=== PATIENT | female | born 1975 | race Caucasian/White ===

== ENCOUNTER 2019-06-03 08:34 | Outpatient (CLI) | payer OTHER, SELFPAY ==
[2019-06-03 09:14] LABS: MALB Creatinine Ratio 3.1 mg/g (0-30); Microalbumin Urine Random 7.7 mg/L
[2019-06-03 09:15] LABS: Hemoglobin A1C 8.7 % (<5.7)
[2019-06-03 09:42] LABS: Anion Gap 12.6 mmol/L (7-16); Blood Urea Nitrogen 10 mg/dL (7-18); Calcium 8.7 mg/dL (8.5-10.1); Carbon Dioxide 26 mmol/L (21-32); Chloride 103 mmol/L (98-108); Estimated Glomerular Filt Rate > 60; Glucose 145 mg/dL (70-99); Osmolality Calculated 286 mOsm/kg (285-295); Potassium 4.6 mmol/L (3.5-5.1); Sodium 137 mmol/L (136-145)
== END 2019-06-03 08:35 | disposition home or self-care (01) ==
LOC: CHSLAB 08:39
PROVIDERS: PCP Internal Medicine; Visit Provider Internal Medicine
DX: E10.65 Type 1 diabetes mellitus with hyperglycemia (principal)
CPT/HCPCS: 36415; 80048; 82043; 83036

== ENCOUNTER 2019-09-26 07:13 | Outpatient (CLI) | payer OTHER, SELFPAY ==
[2019-09-26 07:48] LABS: Add Urine Microscopic? NO; Appearance Urine Clear (Clear); Bilirubin Urine Negative (Negative); Blood Urine Negative (Negative); Color Urine Yellow (Yellow); Glucose Urine UA Negative (Negative); Ketones Urine Negative (Negative); Leukocyte Esterase Ur Negative (Negative); Nitrate Urine Negative (Negative); Protein Urine Negative (Negative); Specific Grav Ur 1.025 (1.010-1.020)
[2019-09-26 08:11] LABS: MALB Creatinine Ratio 4.2 mg/g (0-30); Microalbumin Urine Random 10.3 mg/L
[2019-09-26 08:16] LABS: Hemoglobin A1C 8.5 % (<5.7)
[2019-09-26 08:23] LABS: Alanine Aminotransferase 22 U/L (14-59); Albumin Level 3.4 g/dL (3.4-5.0); Alkaline Phosphatase 75 U/L (46-116); Anion Gap 12.3 mmol/L (7-16); Aspartate Amino Transferase 13 U/L (15-37); Bilirubin,Total 0.5 mg/dL (0.00-1.00); Blood Urea Nitrogen 10 mg/dL (7-18); Calcium 8.5 mg/dL (8.5-10.1); Carbon Dioxide 26 mmol/L (21-32); Chloride 104 mmol/L (98-108); Cholesterol 112 mg/dL (0-200); Creatine Kinase 80 U/L (26-192); Estimated Glomerular Filt Rate > 60; Glucose 123 mg/dL (70-99); HDL Direct 44 mg/dL (40-60); LDL Cholesterol Calculated 58 mg/dL (<130); Osmolality Calculated 286 mOsm/kg (285-295); Potassium 4.3 mmol/L (3.5-5.1); Sodium 138 mmol/L (136-145); Total Protein 6.3 g/dL (6.4-8.2); Triglycerides 50 mg/dL (0-150)
== END 2019-09-26 07:14 | disposition home or self-care (01) ==
PROVIDERS: PCP Internal Medicine; Visit Provider Internal Medicine
DX: E78.2 Mixed hyperlipidemia (principal); I10 Essential (primary) hypertension; E10.65 Type 1 diabetes mellitus with hyperglycemia
CPT/HCPCS: 36415; 80053; 80061; 81003; 82043; 82550; 83036

== ENCOUNTER 2020-01-30 07:29 | Outpatient (CLI) | payer OTHER, SELFPAY ==
[2020-01-30 07:58] LABS: Creatinine Urine 163.79 mg/dL (40-278); MALB Creatinine Ratio 21.5 mg/g (0-30); Microalbumin Urine Random 35.3 mg/L
[2020-01-30 08:00] LABS: Hemoglobin A1C 8.6 % (<5.7)
[2020-01-30 08:36] LABS: Alanine Aminotransferase 22 U/L (14-59); Albumin Level 3.6 g/dL (3.4-5.0); Alkaline Phosphatase 83 U/L (46-116); Anion Gap 9 mmol/L (8-16); Aspartate Amino Transferase < 10 U/L (15-37); Bilirubin,Total 0.4 mg/dL (0.00-1.00); Blood Urea Nitrogen 12 mg/dL (7-18); Calcium 8.8 mg/dL (8.5-10.1); Carbon Dioxide 24 mmol/L (21-32); Chloride 101 mmol/L (98-108); Estimated Glomerular Filt Rate > 60; Glucose 252 mg/dL (70-99); Osmolality Calculated 286 mOsm/kg (285-295); Potassium 4.3 mmol/L (3.5-5.1); Sodium 134 mmol/L (136-145); Total Protein 6.7 g/dL (6.4-8.2)
== END 2020-01-30 07:30 | disposition home or self-care (01) ==
LOC: CHSLAB 07:30
PROVIDERS: PCP Internal Medicine; Visit Provider Internal Medicine
DX: E10.65 Type 1 diabetes mellitus with hyperglycemia (principal)
CPT/HCPCS: 36415; 80053; 82043; 83036

== ENCOUNTER 2020-05-29 07:33 | Outpatient (CLI) | payer OTHER, SELFPAY ==
[2020-05-29 08:01] LABS: MALB Creatinine Ratio 12.5 mg/g (0-30); Microalbumin Urine Random 32.1 mg/L
[2020-05-29 08:02] LABS: Hemoglobin A1C 8.4 % (<5.7)
[2020-05-29 09:24] LABS: Alanine Aminotransferase 22 U/L (14-59); Albumin Level 3.6 g/dL (3.4-5.0); Alkaline Phosphatase 82 U/L (46-116); Anion Gap 8 mmol/L (8-16); Aspartate Amino Transferase < 10 U/L (15-37); Bilirubin,Total 0.7 mg/dL (0.00-1.00); Blood Urea Nitrogen 12 mg/dL (7-18); Carbon Dioxide 28 mmol/L (21-32); Chloride 100 mmol/L (98-108); Cholesterol 95 mg/dL (0-200); Creatine Kinase 74 U/L (26-192); Estimated Glomerular Filt Rate > 60; Glucose 145 mg/dL (70-99); HDL Direct 43 mg/dL (40-60); LDL Cholesterol Calculated 41 mg/dL (<130); Osmolality Calculated 284 mOsm/kg (285-295); Potassium 4.4 mmol/L (3.5-5.1); Sodium 136 mmol/L (136-145); Total Protein 6.6 g/dL (6.4-8.2); Triglycerides 57 mg/dL (0-150)
[2020-05-29 09:52] LABS: Add Urine Microscopic? NO; Appearance Urine Clear (Clear); Bilirubin Urine Negative (Negative); Blood Urine Negative (Negative); Color Urine Yellow (Yellow); Glucose Urine UA Negative (Negative); Ketones Urine Negative (Negative); Leukocyte Esterase Ur Negative (Negative); Nitrate Urine Negative (Negative); Protein Urine Negative (Negative); Urobilinogen Urine 0.2 mg/dL (0.2-1.0); pH Urine 6.5 (5.0-8.0)
== END 2020-05-29 07:34 | disposition home or self-care (01) ==
LOC: CHSLAB 07:36
PROVIDERS: PCP Internal Medicine; Visit Provider Internal Medicine
DX: E10.65 Type 1 diabetes mellitus with hyperglycemia (principal); I10 Essential (primary) hypertension; E78.2 Mixed hyperlipidemia
CPT/HCPCS: 36415; 80053; 80061; 81003; 82043; 82550; 83036

== ENCOUNTER 2020-09-07 10:25 | Outpatient (CLI) | payer OTHER, SELFPAY ==
[2020-09-07 10:50] LABS: Hematocrit 46.6 % (37.0-47.0); Mean Corpuscular HGB Conc 34.3 g/dl (32-36); Mean Corpuscular Hemoglobin 29.7 pg (26-34); Mean Corpuscular Volume 86.6 fl (80-100); Mean Platelet Volume 10.4 fl (7.4-10.4); Platelet Count Result 341 k/mm3 (150-375); Red Blood Count 5.38 M/mm3 (4.2-5.4); Red Cell Distribution Width 11.6 % (11.5-14.5); White Blood Count 10.8 K/mm3 (4.5-10.0)
[2020-09-07 10:51] LABS: Hemoglobin A1C 8.2 % (<5.7)
[2020-09-07 10:52] LABS: Alanine Aminotransferase 18 U/L (4-35); Albumin Level 4.3 g/dL (3.5-5.1); Alkaline Phosphatase 82 U/L (38-126); Anion Gap 7 mmol/L (8-16); Aspartate Amino Transferase 21 U/L (14-36); Bilirubin,Total 0.4 mg/dL (0.2-1.3); Blood Urea Nitrogen 9 mg/dL (7-17); Calcium 9.4 mg/dL (8.4-10.2); Carbon Dioxide 28 mmol/L (22-30); Chloride 103 mmol/L (98-107); Cholesterol 128 mg/dL (0-200); Estimated Glomerular Filt Rate > 60; Glucose 125 mg/dL (65-105); HDL Direct 48 mg/dL; Potassium 4.1 mmol/L (3.4-5.0); Sodium 138 mmol/L (137-145); Triglycerides 89 mg/dL (<150)
[2020-09-07 11:03] LABS: LDL Cholesterol Direct 52 mg/dL
== END 2020-09-07 10:26 | disposition home or self-care (01) ==
PROVIDERS: PCP Family Medicine; Visit Provider Family Medicine
DX: R20.0 Anesthesia of skin (principal); K21.9 Gastro-esophageal reflux disease without esophagitis; E78.2 Mixed hyperlipidemia; E10.9 Type 1 diabetes mellitus without complications; Z13.220 Encounter for screening for lipoid disorders
CPT/HCPCS: 36415; 80048; 80061; 80076; 82607; 83036; 85027

== ENCOUNTER 2020-10-20 10:12 | Outpatient (CLI) | payer OTHER, SELFPAY ==
--- NOTE | 2020-10-20 11:30 | NEURO_ITS ---
Impression: # Insulin dependent diabetic complains of increasing numbness of hands with nocturnal paresthesia. # Bilateral Carpal Tunnel Syndrome. # No ulnar neuropathy. # Normal needle/EMG exam. Nerve Conduction Studies Anti Sensory Summary Table Stim Site NR Peak (ms) P-T Amp (?V) Site1 Site2 Delta-P (ms) Dist (cm) Chase (m/s) Left Median Anti Sensory (2-3nd Digit) Wrist 3.7 47.3 Wrist 2-3nd Digit 3.7 14.0 38 Wrist 3.9 23.2 Wrist 2-3nd Digit 3.7 14.0 38 Right Median Anti Sensory (2-3nd Digit) Wrist 4.5 37.9 Wrist 2-3nd Digit 4.5 14.0 31 Wrist 4.1 34.3 Wrist 2-3nd Digit 4.5 14.0 31 Left Radial Anti Sensory (Base 1st Digit) Wrist 1.9 23.7 Wrist Base 1st Digit 1.9 0.0 Right Radial Anti Sensory (Base 1st Digit) Wrist 2.0 16.9 Wrist Base 1st Digit 2.0 0.0 Left Ulnar Anti Sensory (5th Digit) Wrist 2.4 51.4 Wrist 5th Digit 2.4 14.0 58 Right Ulnar Anti Sensory (5th Digit) Wrist 2.4 30.0 Wrist 5th Digit 2.4 14.0 58 Motor Summary Table Stim Site NR Onset (ms) O-P Amp (mV) Site1 Site2 Delta-0 (ms) Dist (cm) Chase (m/s) Left Median Motor (Abd Poll Brev) Wrist 5.0 3.2 Elbow Wrist 4.9 26.0 53 Elbow 9.9 1.3 Right Median Motor (Abd Poll Brev) Wrist 5.4 1.7 Elbow Wrist 5.1 26.0 51 Elbow 10.5 1.4 Left Ulnar Motor (Abd Dig Minimi) Wrist 2.6 9.1 A Elbow Wrist 4.8 27.0 56 A Elbow 7.4 7.2 Right Ulnar Motor (Abd Dig Minimi) Wrist 2.4 6.4 A Elbow Wrist 4.6 26.0 57 A Elbow 7.0 5.4 F Wave Studies NR F-Lat (ms) L-R F-Lat (ms) Left Median (Mrkrs) (Abd Poll Brev) 29.44 0.03 Right Median (Mrkrs) (Abd Poll Brev) 29.47 0.03 Left Ulnar (Mrkrs) (Abd Dig Min) 27.95 0.41 Right Ulnar (Mrkrs) (Abd Dig Min) 27.54 0.41 EMG Side Muscle Nerve Root Ins Act Fibs Amp Dur Recrt Comment Right 1stDorInt Ulnar C8-T1 Nml Nml Nml Nml Nml Right Ext Indicis Radial (Post Int) C7-8 Nml Nml Nml Nml Nml Right Ext Digitorum Radial (Post Int) C7-8 Nml Nml Nml Nml Nml Right BrachioRad Radial C5-6 Nml Nml Nml Nml Nml Right PronatorTeres Median C6-7 Nml Nml Nml Nml Nml Right Abd Poll Brev Median C8-T1 Nml Nml Nml Nml Nml Left 1stDorInt Ulnar C8-T1 Nml Nml Nml Nml Nml Left Ext Indicis Radial (Post Int) C7-8 Nml Nml Nml Nml Nml Left Ext Digitorum Radial (Post Int) C7-8 Nml Nml Nml Nml Nml Left BrachioRad Radial C5-6 Nml Nml Nml Nml Nml Left PronatorTeres Median C6-7 Nml Nml Nml Nml Nml Left Abd Poll Brev Median C8-T1 Nml Nml Nml Nml Nml MTDD
== END 2020-10-20 10:13 | disposition home or self-care (01) ==
PROVIDERS: PCP Family Medicine; Visit Provider Family Medicine
DX: R20.2 Paresthesia of skin (principal); G56.03 Carpal tunnel syndrome, bilateral upper limbs
CPT/HCPCS: 95886; 95911

== ENCOUNTER 2021-11-08 09:06 | Outpatient (CLI) | payer OTHER, SELFPAY ==
--- NOTE | ~2021-11-08 | XR_ITS ---
EXAMINATION: XR shoulder LT min 2V DATE: 11/08/2021 11:07 INDICATION: Left shoulder pain. TECHNIQUE: 4 views of left shoulder were obtained. COMPARISON: None. FINDINGS: Bone alignment is normal. No fracture. Joint spaces are normal. IMPRESSION: 1. Normal left shoulder. Reviewed, dictated and finalized at location A. IMPRESSION: 1. Normal left shoulder.
--- NOTE | ~2021-11-08 | XR_ITS ---
EXAMINATION: XR shoulder RT min 2V DATE: 11/08/2021 11:07 INDICATION: Right shoulder pain. TECHNIQUE: 4 views of right shoulder were obtained. COMPARISON: None. FINDINGS: Bone alignment is normal. No fracture. Joint spaces are normal. IMPRESSION: 1. Normal right shoulder. Reviewed, dictated and finalized at location A. IMPRESSION: 1. Normal right shoulder.
--- NOTE | ~2021-11-08 | XR_ITS ---
EXAMINATION: XR_CERV2-3V_CR DATE: 11/08/2021 11:07 INDICATION: Neck pain. TECHNIQUE: 3 views of cervical spine on 4 radiographs were obtained. COMPARISON: None. FINDINGS: There is kyphosis of cervical spine. Vertebral body heights are normal. There is moderately decreased disc height at C5-C6 and severely decreased disc height at C6-C7 with endplate remodeling. There is severe uncovertebral joint osteoarthritis on the right at C5-C6 and bilaterally at C6-C7. T here is multilevel mild facet joint osteoarthritis. There is mild central canal stenosis at C5-C6 and C6-C7. No prevertebral soft tissue swelling. IMPRESSION: 1. Severe cervical spondylosis. Reviewed, dictated and finalized at location A.
--- NOTE | 2021-11-08 09:31 | ECHO_ITS ---
Patient Info Name: Dina Zhong Age: 46 years : 1975 Gender: Female Ht: 61 in Wt: 210 lbs BSA: 2.08 m2 HR: 71 bpm BP: 145 / 92 mmHg Technical Quality: Good Exam Date: 11/08/2021 10:00 AM Exam Location: [facility] Patient Status: Outpatient Admit Date: 11/08/2021 Staff Ordering Physician: Dylon Vogel NP Notereader: Kendall Stewart RDCS, RT Attending Provider: Dylon Vogel NP Referring Physician: Tessa Valladares APRN; Exam Type: CA echo doppler color flow Study Info Indications Z82.79 - Family history of other congenital malformations, deformations and chromosomal abnormalities Complete two-dimensional, color flow and Doppler transthoracic echocardiogram is performed. Strain analysis performed. Summary 1. Complete two-dimensional, color flow and Doppler transthoracic echocardiogram is performed. 2. Left ventricular chamber dimension is normal. 3. Left ventricular systolic function is normal, estimated at 60-65%. 4. The left ventricular diastolic function is grade I diastolic dysfunction. 5. E/e' 13 is mildly elevated. 6. Global longitudinal strain is mildly abnormal at -16.2%. Left Ventricle E/e' 13 is mildly elevated. Global longitudinal strain is mildly abnormal at -16.2%. Left ventricular chamber dimension is normal. Left ventricular systolic function is normal, estimated at 60-65%. The left ventricular diastolic function is grade I diastolic dysfunction. Right Ventricle Right ventricular systolic function is normal and with normal TAPSE 2.4 cm. Right ventricular chamber dimension is normal. Left Atria Left atrial chamber dimension is normal. Right Atria Right atrial chamber dimension is normal. Aortic Valve The aortic valve is trileaflet. There is no aortic valve stenosis. There is no aortic valve regurgitation. Pulmonic Valve There is no pulmonic regurgitation. Mitral Valve There is no mitral valve stenosis. There is no mitral valve regurgitation. Tricuspid Valve There is no tricuspid valve regurgitation. Pericardium/Pleural There is no pericardial effusion. Inferior Vena Cava Normal inferior vena cava with >50% collapse upon inspiration consistent with normal right atrial pressure, 5 mmHg. Aorta The aortic root size at the sinus of Valsalva is normal. Left Ventricular Outflow Tract Name Value Normal LVOT 2D LVOT Diameter 2.0 cm LVOT Doppler LVOT Peak Gradient 4 mmHg LVOT Mean Gradient 2 mmHg LVOT VTI 22 cm LVOT VTI/AV VTI Ratio 0.8 LVOT Stroke Volume 69 ml LVOT CO 6.0 l/min LVOT CI 2.9 l/min/m2 Mitral Valve Name Value Normal MV Doppler MV Decel [place]
[2021-11-08 11:11] LABS: Alanine Aminotransferase 20 U/L (6-35); Albumin Level 4.3 g/dL (3.5-5.1); Alkaline Phosphatase 84 U/L (38-126); Anion Gap 9 mmol/L (8-16); Aspartate Amino Transferase 18 U/L (14-36); Bilirubin,Total 0.4 mg/dL (0.2-1.3); Blood Urea Nitrogen 12 mg/dL (7-17); Calcium 9.1 mg/dL (8.4-10.2); Carbon Dioxide 28 mmol/L (22-30); Chloride 98 mmol/L (98-107); Cholesterol 126 mg/dL (0-200); Estimated Glomerular Filt Rate > 60; Glucose 192 mg/dL (65-110); HDL Direct 45 mg/dL; Potassium 4.1 mmol/L (3.4-5.0); Sodium 135 mmol/L (137-145); Triglycerides 136 mg/dL (<150)
[2021-11-08 11:22] LABS: LDL Cholesterol Direct 53 mg/dL
[2021-11-08 11:29] LABS: Creatinine Urine 103.7 mg/dL
[2021-11-08 11:34] LABS: MALB Creatinine Ratio 10.2 mg/g (0-30); Microalbumin Urine Random 10.6 mg/L (0-16.7)
[2021-11-08 11:45] LABS: Free T4 Free Thyroxine 1.02 ng/mL (0.78-2.19); Vitamin D 25 Hydroxy 29.3 ng/mL
== END 2021-11-08 09:07 | disposition home or self-care (01) ==
PROVIDERS: PCP Family Medicine; Referring Provider Nurse Practitioner Family; Visit Provider Nurse Practitioner Family
DX: E10.9 Type 1 diabetes mellitus without complications (principal); E55.9 Vitamin D deficiency, unspecified; E78.5 Hyperlipidemia, unspecified; I10 Essential (primary) hypertension; M25.512 Pain in left shoulder; M25.511 Pain in right shoulder; Z82.79 Family history of other congenital malformations, deformations and chromosomal abnormalities; M47.892 Other spondylosis, cervical region
CPT/HCPCS: 36415; 72040; 73030; 80053; 80061; 82043; 82306; 82607; 84439; 84443; 93306

== ENCOUNTER 2022-01-10 09:57 | Outpatient (CLI) | payer OTHER, SELFPAY ==
--- NOTE | ~2022-01-10 | MM_ITS ---
EXAMINATION: MM screening abrahan BI w patria HISTORY: Screening mammogram TECHNIQUE: Craniocaudal and mediolateral oblique 3-D tomosynthesis images were obtained and synthetic 2-D images were generated. CAD analysis was submitted and interpreted. COMPARISON: 10/24/2018, 10/15/2018, 11/23/2015 BREAST PARENCHYMAL COMPOSITION: There are scattered areas of fibroglandular density. FINDINGS: Left breast calcifications have a morphology and distribution similar to the 20 19th compar alton examinations. No suspicious mass, calcification, or architectural distortion are identified in e ither breast to suggest malignancy. There has been no suspicious interval change. IMPRESSION: 1. No mammographic evidence of malignancy. 2. Recommend routine screening mammography in one year. BI-RADS Category 2: Benign finding(s). Reviewed, dictated and finalized at location A.
== END 2022-01-10 09:58 | disposition home or self-care (01) ==
PROVIDERS: PCP Family Medicine; Visit Provider Nurse Practitioner Family
DX: Z12.31 Encounter for screening mammogram for malignant neoplasm of breast (principal)
CPT/HCPCS: 77063; 77067

== ENCOUNTER 2023-05-28 09:38 | Outpatient (CLI) | payer OTHER, SELFPAY ==
--- NOTE | ~2023-05-28 | MM_ITS ---
EXAMINATION: MM screening abrahan BI w patria HISTORY: Screening mammogram TECHNIQUE: Craniocaudal and mediolateral oblique 3-D tomosynthesis images were obtained and synthetic 2-D images were generated. CAD analysis was submitted and interpreted. COMPARISON: 01/10/2022 bilateral screening mammogram 10/24/2018 diagnostic left mammogram 10/15/2018 bilateral screening mammogram BREAST PARENCHYMAL COMPOSITION: There are scattered areas of fibroglandular density. FINDINGS: Chronic asymmetric left breast microcalcifications. There is no evidence of suspicious mass , calcification, or architectural distortion to suggest malignancy in either breast. There has been n o suspicious interval change. IMPRESSION: 1. No mammographic evidence of malignancy. 2. Recommend routine screening mammography in one year. BI-RADS Category 2: Benign finding(s). Reviewed, dictated and finalized at location A.
== END 2023-05-28 09:39 | disposition home or self-care (01) ==
LOC: ANHIMG 09:41
PROVIDERS: PCP Family Medicine; Visit Provider Family Medicine
DX: Z12.31 Encounter for screening mammogram for malignant neoplasm of breast (principal)
CPT/HCPCS: 77063; 77067

== ENCOUNTER 2023-07-18 11:02 | Outpatient (CLI) | payer OTHER, SELFPAY ==
[2023-07-18 16:44] LABS: Alanine Aminotransferase 23 U/L (6-35); Albumin Level 4.5 g/dL (3.5-5.1); Alkaline Phosphatase 89 U/L (38-126); Anion Gap 9 mmol/L (4-12); Aspartate Amino Transferase 83 U/L (14-36); Bilirubin,Total 0.5 mg/dL (0.2-1.3); Blood Urea Nitrogen 12 mg/dL (7-17); Calcium 9.6 mg/dL (8.4-10.2); Carbon Dioxide 20 mmol/L (22-30); Chloride 105 mmol/L (98-107); Cholesterol 128 mg/dL (0-200); Estimated Glomerular Filt Rate > 60; Glucose 139 mg/dL (65-110); HDL Direct 45 mg/dL; Potassium 4.5 mmol/L (3.4-5.0); Sodium 134 mmol/L (137-145); Triglycerides 99 mg/dL (<150)
[2023-07-18 16:55] LABS: LDL Cholesterol Direct 64 mg/dL
[2023-07-18 17:08] LABS: Vitamin D 25 Hydroxy 67.4 ng/mL
[2023-07-18 17:16] LABS: Creatinine Urine 93.9 mg/dL
[2023-07-18 17:23] LABS: Microalbumin Urine Random < 6.0 mg/L (0-16.7)
[2023-07-18 17:24] LABS: MALB Creatinine Ratio < 6.4 mg/g (0-30)
== END 2023-07-18 11:03 | disposition home or self-care (01) ==
LOC: ANHWCLAB 11:02
PROVIDERS: PCP Family Medicine; Visit Provider Internal Medicine Endocrinology, Diabetes & Metabolism
DX: E10.9 Type 1 diabetes mellitus without complications (principal); E78.5 Hyperlipidemia, unspecified; E55.9 Vitamin D deficiency, unspecified
CPT/HCPCS: 36415; 80053; 80061; 82043; 82306; 82607; 84443

== ENCOUNTER 2023-08-18 10:37 | Emergency (ER) | payer OTHER, SELFPAY ==
[2023-08-18 11:00] VITALS: BP 131/66; PULSE 98; RESP 16; TEMP 36.6; O2SAT 100
--- NOTE | 2023-08-18 11:31 | ED.URI ---
HPI - URI/Sore Throat General Chief Complaint: Upper Respiratory Infection Stated Complaint: Sore Throat/Cough Time Seen by Provider: 08/18/23 11:33 Source: patient and RN notes reviewed Mode of arrival: ambulatory Limitations: no limitations History of Present Illness HPI Narrative: 48-year-old female presents with concern for 1 and half week history of sinus drainage, sore throat, cough, eye drainage. Reports he has been taking some [id number]-[id number] medications with little relief. She denies fever, body aches, chills, sweats, shortness of breath MD elicited complaint: cough and sore throat Related Data Home Medications Medication Instructions Recorded Confirmed levonorgestrel 21 mcg/24 hr (up to 1 device intrauterine ONCE 08/09/20 08/18/23 8 years) 52 mg intrauterine device (Mirena) omeprazole 20 mg capsule,delayed 20 mg PO DAILY 08/09/20 08/18/23 release ymvbcotv-uck-kbqc-FA-Ca carb-vit K 1 tablet PO DAILY 10/12/21 08/18/23 18 mg iron-400 mcg-500 mg tablet cholecalciferol (vitamin D3) 10 10 mcg PO DAILY 09/12/22 08/18/23 mcg (400 unit) capsule Allergies Allergy/AdvReac Type Severity Reaction Status Date / Time No Known Allergies Allergy Verified 08/18/23 11:14 Review of Systems Review of Systems: CONSTITUTIONAL: Denies malaise, chills, sweats, or fever. EYES: Denies visual changes, redness. Reports bilateral discharge. ENT: Reports rhinorrhea, otalgia and sore throat. CARDIOVASCULAR: Denies chest pain, palpitations, or edema. RESPIRATORY: Reports cough. Denies dyspnea. GASTROINTESTINAL: Denies abdominal pain, nausea, vomiting, diarrhea SKIN: Denies rash or itching. MUSCULOSKELETAL: Denies myalgia. NEUROLOGIC: Denies headache. All systems reviewed & are unremarkable except as noted in HPI and below PMFSH Past Medical History Medical History Bilateral hand numbness BMI greater than 40 Cervical spondylosis CTS (carpal tunnel syndrome) GERD (gastroesophageal reflux disease) Grade I diastolic dysfunction Hyperlipidemia Hypertension Insulin pump in place Long-term insulin use Type 1 diabetes mellitus Vitamin D deficiency, unspecified Surgical History Surgical History History of 2 sections Family History Family History Father Hypertension Bicuspid aortic valve Mother Hypertension Diabetes mellitus Sibling No problems noted. Other Heart disease Social History Social History Smoking packs per day: 0.1 Smoking cigarettes per day: 2.0 Years smoked: 0.2 Smoking pack-years: 0.02 Smoking status: Former smoker Tobacco type: cigarettes Second hand tobacco smoke exposure: No Additional smoking assessment comments: smoked for about 2 months when she was a teenager Alcohol intake: current Alcohol use details: socially Substance use: current Substance use type: marijuana Do You Feel Safe in your Home?: Yes Lack of Transportation: No Lack of Food: Never True Current Housing: I Have Housing Concerned About Future Housing: No Difficulty Paying Gas/Electric Bills: No Difficulty Paying for Meds: No Currently Unemployed: No Education: Trade/Vocational Certificate Difficulty w/ Childcare or Family Care: No Living arrangements: with family Occupation/Education: occupation 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 There is no relevant family history pertinent to the presenting complaint Exam Narrative: GENERAL: Well-appearing, well-nourished, and in no acute distress. HEAD: Normocephalic EYES: PERRLA, conjunctiva
== END 2023-08-18 11:45 | disposition home or self-care (01) ==
PROVIDERS: Emergency Provider Nurse Practitioner; PCP Family Medicine
DX: J32.9 Chronic sinusitis, unspecified (principal); J40 Bronchitis, not specified as acute or chronic; Z87.891 Personal history of nicotine dependence; F12.90 Cannabis use, unspecified, uncomplicated; K21.9 Gastro-esophageal reflux disease without esophagitis; E78.5 Hyperlipidemia, unspecified; I10 Essential (primary) hypertension; E10.9 Type 1 diabetes mellitus without complications; Z96.41 Presence of insulin pump (external) (internal); E55.9 Vitamin D deficiency, unspecified; M47.812 Spondylosis without myelopathy or radiculopathy, cervical region
CPT/HCPCS: 87081; 87880; 99213; G0463

== ENCOUNTER 2023-12-07 11:57 | Outpatient (CLI) | payer OTHER, SELFPAY ==
--- NOTE | ~2023-12-07 | MR_ITS ---
EXAMINATION: MR cervical spine wo con DATE: 12/07/2023 12:30 INDICATION: Spondylosis without myelopathy radiculopathy. TECHNIQUE: Magnetic resonance imaging (MRI) of the cervical spine was performed without intravenous c ontrast. COMPARISON: None FINDINGS: There is kyphosis of cervical spine. Vertebral body heights are normal. There is moderately decreased disc height at C5-C6 and C6-C7 and mildly decreased disc height at C7-T1. The spinal cord signal intensity is normal. The following disc levels are specifically discussed: C2-C3: The disc does not extend beyond the endplate margin. There is no uncovertebral joint osteoarth ritis. There is mild bilateral facet joint osteoarthritis. There is no neural foraminal stenosis. The re is no central canal stenosis. C3-C4: The disc does not extend beyond the endplate margin. There is mild left uncovertebral joint os teoarthritis. There is mild right and moderate left facet joint osteoarthritis. There is mild left ne ural foraminal stenosis. There is no central canal stenosis. C4-C5: The disc does not extend beyond the endplate margin. There is no uncovertebral joint osteoarth ritis. There is no facet joint osteoarthritis. There is no neural foraminal stenosis. There is no silva tral canal stenosis. C5-C6: The disc is bulging. There is severe bilateral uncovertebral joint osteoarthritis. There is no facet joint osteoarthritis. There is mild bilateral neural foraminal stenosis. There is mild central canal stenosis. C6-C7: The disc is bulging with superimposed right central extrusion. There is severe bilateral uncov ertebral joint osteoarthritis. There is mild bilateral facet joint osteoarthritis. There is mild righ t and moderate left neural foraminal stenosis. There is mild central canal stenosis. C7-T1: The disc is bulging with superimposed central extrusion. There is no uncovertebral joint osteo arthritis. There is severe bilateral facet joint osteoarthritis. There is mild bilateral neural greg inal stenosis. There is mild central canal stenosis. IMPRESSION: 1. Moderate cervical spondylosis. Reviewed, dictated and finalized at location A.
== END 2023-12-07 11:58 | disposition home or self-care (01) ==
PROVIDERS: PCP Family Medicine; Visit Provider Physician Assistant Medical
DX: G89.29 Other chronic pain (principal); M25.512 Pain in left shoulder; M47.812 Spondylosis without myelopathy or radiculopathy, cervical region; R20.0 Anesthesia of skin; R20.2 Paresthesia of skin
CPT/HCPCS: 72141

== ENCOUNTER 2024-10-18 07:21 | Outpatient (CLI) | payer OTHER, SELFPAY ==
[2024-10-18 08:36] LABS: Hematocrit 46.8 % (37.0-47.0); Hemoglobin 15.7 g/dL (12.0-15.0); Mean Corpuscular HGB Conc 33.5 g/dl (32-36); Mean Corpuscular Hemoglobin 30.0 pg (26-34); Mean Corpuscular Volume 89.5 fl (80-100); Platelet Count Result 391 k/mm3 (150-375); Red Blood Count 5.23 M/mm3 (4.2-5.4); White Blood Count 12.9 K/mm3 (4.5-10.0)
[2024-10-18 09:16] LABS: Alanine Aminotransferase 19 U/L (6-35); Albumin Level 4.0 g/dL (3.5-5.1); Alkaline Phosphatase 82 U/L (38-126); Anion Gap 7 mmol/L (4-12); Aspartate Amino Transferase 22 U/L (14-36); Bilirubin,Total 0.6 mg/dL (0.2-1.3); Blood Urea Nitrogen 10 mg/dL (7-17); Calcium 9.1 mg/dL (8.4-10.2); Carbon Dioxide 23 mmol/L (22-30); Chloride 104 mmol/L (98-107); Cholesterol 96 mg/dL (0-200); Estimated Glomerular Filt Rate > 60; Glucose 160 mg/dL (65-110); HDL Direct 38 mg/dL; Potassium 3.9 mmol/L (3.4-5.0); Sodium 134 mmol/L (137-145); Total Protein 6.8 g/dL (6.3-8.2); Triglycerides 100 mg/dL (<150)
[2024-10-18 09:56] LABS: MALB Creatinine Ratio 9.3 mg/g (0-30)
[2024-10-18 09:57] LABS: Free T4 Free Thyroxine 1.33 ng/dL (0.78-2.19)
[2024-10-18 10:01] LABS: Thyroid Stimulating Hormone 1.440 uIU/mL (0.465-4.680)
[2024-10-18 10:20] LABS: Vitamin B12 595.0 pg/mL (239-931)
[2024-10-22 22:07] LABS: Free Testosterone (Direct) 1.8 pg/mL (0.0-4.2)
== END 2024-10-18 07:22 | disposition home or self-care (01) ==
LOC: ANHLAB 07:25
PROVIDERS: PCP Family Medicine; Referring Provider Family Medicine; Visit Provider Nurse Practitioner Family
DX: E78.2 Mixed hyperlipidemia (principal); I10 Essential (primary) hypertension; Z13.29 Encounter for screening for other suspected endocrine disorder; E55.9 Vitamin D deficiency, unspecified; E11.9 Type 2 diabetes mellitus without complications; R00.0 Tachycardia, unspecified
CPT/HCPCS: 36415; 80053; 80061; 82043; 82306; 82607; 84402; 84403; 84439; 84443; 85027

== ENCOUNTER 2024-12-22 14:18 | Outpatient (CLI) | payer OTHER, SELFPAY ==
--- NOTE | ~2024-12-22 | CT_ITS ---
EXAMINATION: CT abdomen pelvis w con DATE: 12/22/2024 15:05 INDICATION: Unspecified abdominal pain TECHNIQUE: Computed tomography (CT) of the abdomen and pelvis was performed with 100 mL Omnipaque-350 intravenous contrast. Automated exposure control and iterative reconstruction technique were employed. The dose-length product was 1102.24 mGy-cm. COMPARISON: None FINDINGS: Lung bases are clear. Heart size is normal. No pericardial or pleural effusion. Liver, gallbladder, spleen, pancreas, bilateral kidneys and right adrenal gland are normal. 1.6 cm left adrenal mass. Bladder and bilateral adnexa are unremarkable. T-shaped IUD in expected position within the normal anteverted uterus. Bowels including the appendix are normal. Very small fat-containing umbilical hernia. There is a small fat-containing supraumbilical ventral hernia with mild surrounding inflammatory stranding. No free intraperitoneal gas or fluid. No pathologically enlarged abdominal or pelvic lymphadenopathy. Severe lower thoracic spondylosis. IMPRESSION: 1. Mild inflammatory stranding surrounding a small fat-containing supraumbilical ventral hernia. No other acute intra-abdominal/pelvic process. 2. Indeterminate 1.6 cm left adrenal mass statistically most likely to represent an adenoma. Consider follow-up post contrast adrenal protocol CT or MRI. 3. T-shaped IUD in expected position in the anteverted uterus. Reviewed, dictated and finalized at location A. IMPRESSION: 1. Mild inflammatory stranding surrounding a small fat-containing supraumbilica l ventral hernia. No other acute intra-abdominal/pelvic process. 2. Indeterminate 1.6 cm left adrenal mass statistically most likely to represen t an adenoma. Consider follow-up post contrast adrenal protocol CT or MRI. 3. T-shaped IUD in expected position in the anteverted uterus.
[2024-12-22 14:55] LABS: Estimated Glomerular Filt Rate > 60
== END 2024-12-22 14:19 | disposition home or self-care (01) ==
PROVIDERS: PCP Family Medicine; Visit Provider Physician Assistant Medical
DX: R10.9 Unspecified abdominal pain (principal); R10.33 Periumbilical pain; R19.00 Intra-abdominal and pelvic swelling, mass and lump, unspecified site; D35.02 Benign neoplasm of left adrenal gland
CPT/HCPCS: 74177; Q9967

== ENCOUNTER 2025-01-22 06:55 | Outpatient (CLI) | payer OTHER, SELFPAY ==
--- NOTE | ~2025-01-22 | MR_ITS ---
EXAMINATION: MR abdomen wo/w con DATE: 01/22/2025 08:19 INDICATION: Other specified disorders of adrenal gland. TECHNIQUE: Magnetic resonance imaging (MRI) of the abdomen was performed without and with 20 mL MultiHance intravenous contrast. COMPARISON: CT abdomen and pelvis 12/22/2024 FINDINGS: There is a 12 mm mass with interrupted peripheral puddling of contrast in the liver, consistent with a hemangioma. The gallbladder, spleen, pancreas, and right adrenal gland are normal. There are 2 masses in left adrenal and measuring up to 2.3 cm containing microscopic fat, consistent with adenomas. The kidneys are normal. There is a supraumbilical hernia containing fat. There are no pathologically enlarged lymph nodes. There is no free intraperitoneal fluid. IMPRESSION: 1. Two left adrenal adenomas. 2. Supraumbilical hernia containing fat. 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
== END 2025-01-22 06:56 | disposition home or self-care (01) ==
PROVIDERS: PCP Family Medicine; Visit Provider Physician Assistant Medical
DX: E27.8 Other specified disorders of adrenal gland (principal); D35.02 Benign neoplasm of left adrenal gland; K42.9 Umbilical hernia without obstruction or gangrene
CPT/HCPCS: 74183; A9577

== ENCOUNTER 2025-01-26 01:18 | Day surgery (SDC) | payer OTHER, SELFPAY ==
[2025-01-12 13:36] VITALS: BMI 39.1
--- NOTE | 2025-01-26 07:17 | P.PNAN_ITS ---
Anes - Initial Pre Proc Eval Procedure: Operation Date: 01/26/25 08:30 Proposed Procedures p EGD & Screening Colonoscopy - Parker Quan MD Date/Time: 01/26/25 07:17 Surgeon: Parker Quan MD Pre Op Diagnosis: Screening, GERD Patient Data Age: 49 Gender: F Height: 1.52 m Weight: 90.8 kg Allergies Allergy/AdvReac Type Severity Reaction Status Date / Time No Known Allergies Allergy Verified 01/26/25 07:14 Home Medications ?Medication ?Instructions ?Recorded ?Confirmed ?Type levonorgestrel (Mirena) 1 device intrauterine ONCE 0 08/09/20 01/26/25 History ftigbzra-kmq-hedi-FA-Ca carb-vit K 1 tablet PO DAILY 0 10/12/21 01/26/25 History 18 mg iron-400 mcg-500 mg tablet glucagon 3 mg/actuation nasal 3 mg intranasal ONCE PRN 05/08/22 01/12/25 Rx spray (Baqsimi) hypoglycemia #1 ea glucose 4 gram chewable tablet 16 g (4 x 4 gram) PO Q1 5M PRN 05/08/22 01/12/25 Rx (Dex4 Glucose) hypoglycemia #60 tabs cholecalciferol (vitamin D3) 10 10 mcg PO DAILY 01/26/25 History mcg (400 unit) capsule blood sugar diagnostic (Contour #400 ea 06/01/2301/12 Rx Next Test Strips) cyclobenzaprine 10 mg tablet 10 mg PO TID PRN muscle s pasm #30 10/29/23 01/26/25 Rx tabs pravastatin 20 mg tablet See Rx Instructions .Route 0 06/30/24 01/26/25 Rx .COMPLEX #90 tabs lisinopril 40 mg tablet 40 mg PO DAILY #90 tabs 04/2 04/1201/26/25 Rx insulin aspart U-100 100 unit/mL 150 unit (1.5 mL) con tinuous 12/15/24 01/26/25 Rx subcutaneous solution (Novolog subcutaneous infusion D AILY 90 U-100 Insulin aspart) days #140 mL semaglutide 2 mg/dose (8 mg/3 mL) 2 mg (0.75 mL) subcu t WEEKLY 90 12/15/24 01/26/25 Rx subcutaneous pen injector (Ozempic) days #9 mL pantoprazole 40 mg tablet,delayed 40 mg PO QAM #90 tab s 12/25/24 01/26/25 Rx release ondansetron 4 mg disintegrating 4 mg PO Q8H PRN nausea and 01/05/25 01/12/25 Rx tablet vomiting #8 tabs Patient hx anesthesia problems: none Family hx anesthesia problems: none Results Review: All pre-operative results and documents have been reviewed as part of the pre- operative evaluation. [facility] Past Medical History Medical History Cough Sinus headache Cervical spondylosis Grade I diastolic dysfunction Vitamin D deficiency, unspecified CTS (carpal tunnel syndrome) Long-term insulin use Type 1 diabetes mellitus Bilateral hand numbness BMI greater than [address] GERD (gastroesophageal reflux disease) Hyperlipidemia Hypertension Surgical History Surgical History History of 2 sections Family History Family History Father Hypertension Bicuspid aortic valve Mother Hypertension Diabetes mellitus Sibling No problems noted. Other Heart disease Social History Social History Smoking packs per day: 0.1 Smoking cigarettes per day: 2.0 Years smoked: 0.2 Smoking pack-years: 0.02 Smoking status: Never smoker Tobacco type: cigarettes Second hand tobacco smoke exposure: No Additional smoking assessment comments: smoked for about 2 months when she was a teenager Alcohol intake: current Alcohol use details: socially Substance use: current Substance use type: marijuana Other substance usage details: weekly Do You Feel Safe in your Home?: Yes Lack of Transportation: No Lack of Food: Never True Current Housing: I Have Housing Concerned About Future Housing: No Difficulty Paying Gas/Electric Bills: No Difficulty Paying for Meds: No Currently Unemployed: No Education: Trade/Vocational Certificate Difficulty w/ Childcare or Family Care: No Living arrangements: with family Occupation/Education: occupation 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 Informed Consent: The patient's anesthetic plan and its attendant risks and benefits were discussed with the patient/family/POA. Questions were solicited and answers provided to the satisfaction of the patient/family/POA.
[2025-01-26 07:18] VITALS: BP 132/72; PULSE 96; RESP 20; TEMP 35.7; O2SAT 98; BMI 39.2
[2025-01-26 07:25] LABS: BEDSIDEPREGUCG Negative (Negative)
[2025-01-26] MEDS: LACTATED RINGERS 1,000 ML 150 ML IV CONT (07:35)
--- NOTE | 2025-01-26 08:13 | P.HP_ITS ---
History of Present Illness History of Present Illness Consent: Risks, benefits, and alternatives have been discussed and questions answered. Patient agrees to proceed with procedure. Chief complaint: Screening, GERD Narrative: Dina Zhong is a 49 year old female here for first screening colonoscopy and egd, h/o gerd with protonix that is helping some Review of Systems Review of Systems: All systems reviewed & are unremarkable except as noted in HPI and below PMFSH Past Medical History Medical History Cough Sinus headache Cervical spondylosis Grade I diastolic dysfunction Vitamin D deficiency, unspecified CTS (carpal tunnel syndrome) Long-term insulin use Type 1 diabetes mellitus Bilateral hand numbness BMI greater than [address] GERD (gastroesophageal reflux disease) Hyperlipidemia Hypertension Surgical History Surgical History History of 2 sections Family History Family History Father Hypertension Bicuspid aortic valve Mother Hypertension Diabetes mellitus Sibling No problems noted. Other Heart disease Social History Social History Smoking packs per day: 0.1 Smoking cigarettes per day: 2.0 Years smoked: 0.2 Smoking pack-years: 0.02 Smoking status: Never smoker Tobacco type: cigarettes Second hand tobacco smoke exposure: No Additional smoking assessment comments: smoked for about 2 months when she was a teenager Alcohol intake: current Alcohol use details: socially Substance use: current Substance use type: marijuana Other substance usage details: weekly Do You Feel Safe in your Home?: Yes Lack of Transportation: No Lack of Food: Never True Current Housing: I Have Housing Concerned About Future Housing: No Difficulty Paying Gas/Electric Bills: No Difficulty Paying for Meds: No Currently Unemployed: No Education: Trade/Vocational Certificate Difficulty w/ Childcare or Family Care: No Living arrangements: with family Occupation/Education: occupation 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 Gender identity (if verbalized by the patient): Female Spiritual care concerns: No Meds Home Medications and Allergies Home Medications ?Medication ?Instructions ?Recorded ?Confirmed ?Type levonorgestrel (Mirena) 1 device intrauterine ONCE 0 08/09/20 01/26/25 History ydgodmln-smx-[id number]-FA-Ca carb-vit K 1 tablet PO DAILY 0 10/12/21 01/26/25 History 18 mg iron-400 mcg-500 mg tablet glucagon 3 mg/actuation nasal 3 mg intranasal ONCE PRN 05/08/22 01/12/25 Rx spray (Baqsimi) hypoglycemia #1 ea glucose 4 gram chewable tablet 16 g (4 x 4 gram) PO Q1 5M PRN 05/08/22 01/12/25 Rx (Dex4 Glucose) hypoglycemia #60 tabs cholecalciferol (vitamin D3) 10 10 mcg PO DAILY 01/26/25 History mcg (400 unit) capsule blood sugar diagnostic (Contour #400 ea 06/01/2301/12 Rx Next Test Strips) cyclobenzaprine 10 mg tablet 10 mg PO TID PRN muscle s pasm #30 10/29/23 01/26/25 Rx tabs pravastatin 20 mg tablet See Rx Instructions .Route 0 06/30/24 01/26/25 Rx .COMPLEX #90 tabs lisinopril 40 mg tablet 40 mg PO DAILY #90 tabs 04/2 04/1201/26/25 Rx insulin aspart U-100 100 unit/mL 150 unit (1.5 mL) con tinuous 12/15/24 01/26/25 Rx subcutaneous solution (Novolog subcutaneous infusion D AILY 90 U-100 Insulin aspart) days #140 mL semaglutide 2 mg/dose (8 mg/3 mL) 2 mg (0.75 mL) subcu t WEEKLY 90 12/15/24 01/26/25 Rx subcutaneous pen injector (Ozempic) days #9 mL pantoprazole 40 mg tablet,delayed 40 mg PO QAM #90 tab s 12/25/24 01/26/25 Rx release ondansetron 4 mg disintegrating 4 mg PO Q8H PRN nausea and 01/05/25 01/12/25 Rx tablet vomiting #8 tabs Allergies Allergy/AdvReac Type Severity Reaction Status Date / Time No Known Allergies Allergy Verified 01/26/25 07:14 Vital Signs Vital Signs - 24 hr 01/26/25 07:18 Temperature 96.2 F L Pulse Rate 96 Respiratory Rate 20 Blood Pressure 132/72 Pulse Oximetry 98 Oxygen Delivery Room Air Exam 2 Const: General: comfortable and no acute distress HENMT: Face/Nose/Sinus: Normal nares present Eyes: General: appearance normal, both eyes and all related structures Neck: Neck: no JVD Resp: Auscultation: clear to auscultation bilaterally Cardio: Rate: regular rate Rhythm: regular rhythm GI: Inspection: non-distended GI Palp: Yes Soft to palpation Skin: General skin exam: normal color Extrem: General: normal to inspection Psych: Mental Status: mental status grossly normal Assessment and Plan Assessment and plan (1) GERD (gastroesophageal reflux disease): Qualifiers: Esophagitis presence: without esophagitis Qualified Code(s): K21.9 - Gastro-esophageal reflux disease without esophagitis Code(s): K21.9 - Gastro-esophageal reflux disease without esophagitis Status: Acute Assessment and Plan: egd (2) Screen for colon cancer: Code(s): Z12.11 - Encounter for screening for malignant neoplasm of colon Status: Acute Assessment and Plan: colonoscopy
--- NOTE | 2025-01-26 08:23 | SUR.OPER ---
EGD END TIME 820, COLONOSCOPY START TIME 08
--- NOTE | 2025-01-26 08:24 | S_PTH ---
PATIENT: Dina Zhong LOC: [facility]#:[id number] AGE/SX: 49/F ROOM: RE01/26/[address]: Parker Quan MD : [id number] BED: DIS: 01/26/2025 SPEC #: [id number] RECD: 01/26/25 09:44 STATUS: DECLAN REGardenia #: [id number] MARGARITA: 01/26/25 08:[address]: Parker Quan DEPT: [facility] Surgical RECD BY: Gayathri Wright ENTERED: 01/26/25 09:44 SP TYPE: Surgical OTHR DR: Danny Quintanilla MD Tissues: A - Gastric Biopsy Procedures: Hematoxylin and Eosin Stain Gross and Microscopic Level 4
[2025-01-26 08:31] VITALS: BP 153/100; PULSE 100; RESP 20; O2SAT 97
[2025-01-26 08:41] VITALS: BP 111/83; PULSE 93; RESP 22; O2SAT 97
[2025-01-26 08:51] VITALS: BP 124/91; PULSE 97; RESP 20; O2SAT 99
--- NOTE | 2025-01-26 08:59 | SUR.PHASEII ---
Patient's blood sugar on CGM was 180.
== END 2025-01-26 09:03 | disposition home or self-care (01) ==
PROVIDERS: Anesthesiology; PCP Family Medicine; Referring Provider Family Medicine; Visit Provider Internal Medicine Gastroenterology
PROC: 0DJ08ZZ Inspection of Upper Intestinal Tract, Via Natural or Artificial Opening Endoscopic (ICD-10-PCS; CPT 45378; principal; 2025-01-26 08:30)
DX: Z12.11 Encounter for screening for malignant neoplasm of colon (principal); K64.8 Other hemorrhoids; K64.4 Residual hemorrhoidal skin tags; K21.9 Gastro-esophageal reflux disease without esophagitis; K44.9 Diaphragmatic hernia without obstruction or gangrene; K29.70 Gastritis, unspecified, without bleeding; F12.90 Cannabis use, unspecified, uncomplicated; E66.9 Obesity, unspecified; Z68.39 Body mass index [BMI] 39.0-39.9, adult
CPT/HCPCS: 45378; 43239; 88305; J2704; J7120